=== PATIENT | male | born 1975 | race Caucasian/White ===

== ENCOUNTER 2020-09-09 12:34 | Emergency (ER) | payer BC ==
[2020-09-09 12:52] VITALS: BP 143/89
[2020-09-09] MEDS ORDERED: DUONEB 0.5-3 MG/3 ml Neb IH ONE (12:56)
[2020-09-09] MEDS ORDERED: solu-MEDROL 125 MG, Sterile H2O 10 ml 2 ML IV ONE ×2 (12:56)
[2020-09-09] MEDS ORDERED: solu-MEDROL ONE (13:14)
[2020-09-09] MEDS ORDERED: Sterile H2O 10 ml IJ ONE (13:15)
--- NOTE | 2020-09-09 13:20 | ERPHSYRPT ---
- History of Present Illness Time Seen by Provider: 09/09/20 12:44 Source: patient Exam Limitations: no limitations Patient Subjective Stated Complaint: fatigue, muscle aches, fever, cough, shortness of breath Triage Nursing Assessment: Pt brought to the ER by his , hypoxic, hypertensive, denies pain, tachycardic, states that he had a fever at home, skin n/w/d, doesn't appear to be in any distress Physician History: 45 years old male presented to the ER with chief complaint of flulike symptoms since yesterday after he came back from [place]. Patient reports having cough congestion, headache, body aches, shortness of breath/chest soreness with low- grade subjective feeling of fever and chills. No abdominal pain nausea vomiting or diarrhea reported. Did not have Covid vaccine. Reports he did take neb brady tment prior to arrival and feeling better Timing/Duration: yesterday, gradual onset, worse Cough Quality/Degree: moderate, dry cough Possible Cause: no prior episodes Modifying Factors: Improves With: albuterol nebulizer. Worsens With: coughing, exertion Associated Symptoms: fever, chills, chest pain/soreness, cough, dizziness, earache, headache, muscle aches, nasal congestion Allergies/Adverse Reactions: No Known Drug Allergies Allergy (Verified 09/09/20 12:52) Home Medications: Trazodone HCl 1 tablet PO DAILY 01/22/15 [History] Zolpidem Tartrate [Ambien] 1 tablet PO HS 01/22/15 [History] Travel Risk - International Travel Have you traveled outside of the country in past 3 weeks: No - Coronavirus Screening Are you exhibiting any of the following symptoms?: No Symptoms: Fever, Cough: New Onset, Shortness of Breath, Headaches/Body Aches/Fatigue Close contact with a COVID-19 positive Pt in past 14-21 Days: No - Vaccine Status Have you recieved a Covid-19 vaccination: No - Review of Systems Constitutional: Fever, Chills, Fatigue, Weakness Eyes: No Symptoms Ears, Nose, & Throat: Nose Congestion, Throat Pain Respiratory: Cough, Dyspnea, Dyspnea on Exertion (CARDENAS), Wheezing Abdominal/Gastrointestinal: No Symptoms Genitourinary Symptoms: No Symptoms Musculoskeletal: Myalgias Skin: No Symptoms Neurological: No Symptoms Psychological: No Symptoms Endocrine: No Symptoms Hematologic/Lymphatic: No Symptoms Immunological/Allergic: No Symptoms - Past Medical History Pertinent Past Medical History: Yes Neurological History: No Pertinent History ENT History: No Pertinent History Cardiac History: Congenital Heart Disease Respiratory History: No Pertinent History Endocrine Medical History: No Pertinent History Musculoskeletal History: Arthritis, Fractures GI Medical History: GERD History: No Pertinent History Psycho-Social History: No Pertinent History Male Reproductive Disorders: No Pertinent History Other Medical History: history of rib, finger, and toe fractures. surgical hx: hernia repair (2015), B carpal tunnel releases (2015), tonsilectomy (childhood) - Past Surgical History Past Surgical History: Yes Musculoskeletal: Orthopedic Surgery Male Surgical History: Vasectomy Other Surgical History: tony carpal tunnnel surgery, history of rib, finger, and toe fractures. surgical hx: hernia repair (2014), B carpal tunnel releases (2015), tonsilectomy (childhood) - Social History Smoking Status: Former smoker Exposure to second hand smoke: No Drug Use: none Patient Lives Alone: No - Nursing Vital Signs Nursing Vital Signs: Initial Vital Signs Temperature 99.1 F 09/09/20 12:39 Pulse Rate 104 H 09/09/20 12:39 Respiratory Rate 19 09/09/20 12:39 Blood Pressure 143/89 09/09/20 12:39 O2 Sat by Pulse Oximetry 91 L 09/09/20 12:39 Pain Scale Pain Intensity 0 - Physical Exam General Appearance: no apparent distress, alert Eye Exam: PERRL/EOMI, eyes nml inspection Ears, Nose, Throat Exam: TMs normal, pharyngeal erythema Neck Exam: normal inspection, non-tender, full range of motion Respiratory Exam: normal breath sounds, lungs clear Cardiovascular Exam: regular rate/rhythm, normal heart sounds Gastrointestinal/Abdomen Exam: soft, normal bowel sounds, No tenderness Back Exam: normal inspection, normal range of motion Extremity Exam: normal inspection, normal range of motion Neurologic Exam: alert, oriented x 3, cooperative Skin Exam: normal color SpO2 Interpretation: normal SpO2: 91 O2 Delivery: Room Air - Course EKG Interpreted by Me: RATE (92), Sinus Rhythm, NORMAL AXIS, NORMAL INTERVALS, Non-specific ST Changes Ordered Tests: Medication Summary Discontinued Medications Generic Name Dose Route Start Last Admin Trade Name Freq PRN Reason Stop Dose Admin Albuterol/Ipratropium 3 ml 09/09/20 12:56 09/09/20 15:19 Duoneb 0.5-3 Mg/3 Ml Neb IH 09/09/20 12:57 Not Given STAT ONE Methylprednisolone Sodium 0 mg 09/09/20 12:56 09/09/20 13:20 Succinate 125 mg/ Sterile IV 09/09/20 12:57 125 mg Water 2 ml STAT ONE Administration Azithromycin 500 mg in 250 mls @ 250 mls/hr 09/09/20 17:34 Zithromax 500 Mg/ 250 Ml Nacl Premix IV 09/09/20 18:33 STAT STA Ceftriaxone Sodium/Dextrose 2 g in 50 mls @ 100 mls/hr 09/09/20 17:34 Rocephin 2 Gm-D5w 50ml Bag IV 09/09/20 18:03 STAT STA Methylprednisolone Sodium Succinate Confirm 09/09/20 13:14 Solu-Medrol Administered 09/09/20 13:15 Dose 125 mg .ROUTE .STK-MED ONE Sterile Water Confirm 09/09/20 13:15 Sterile H2o 10 Ml Administered 09/09/20 13:16 Dose 10 ml IJ .STK-MED ONE Lab/Rad Data: Laboratory Result Diagrams 09/09/20 13:52 09/09/20 13:52 Laboratory Results 09/09/20 09/09/20 09/09/20 Range/Units 18:47 16:03 14:48 WBC (4.0-10.5) K/mm3 RBC (4.1-5.6) M/mm3 Hgb (12.5-18.0) gm/dl Hct (42-50) % MCV (78-100) fl MCH (26-32) pg MCHC (32-36) g/dl RDW (11.5-14.0) % Plt Count (150-450) K/mm3 MPV (7.5-11.0) fl Gran % (36.0-66.0) % Eos # (Auto) (0-0.5) Absolute Lymphs (auto) (1.0-4.6) Absolute Monos (auto) (0.0-1.3) Lymphocytes % (24.0-44.0) % Monocytes % (0.0-12.0) % Eosinophils % (0.00-5.0) % Basophils % (0.0-0.4) % Absolute Granulocytes (1.4-6.9) Basophils # (0-0.4) D-Dimer (215-500) ng/mL pO2/FiO2 Ratio % VBG pH (7.32-7.42) VBG pCO2 at Pat Temp (42-55) mm/Hg VBG pO2 at Pat Temp (25-40) mm/Hg VBG HCO3 (22-28) meq/L VBG O2 Sat (Fanny) (95-100) VBG Base Excess (-2.0-2.0) VBG Hemoglobin VBG Carboxyhemoglobin (0.0-6.9) % T HGB POC Potassium (3.5-5.1) Sodium (137-145) mmol/L Potassium (3.5-5.1) mmol/L Chloride (98-107) mmol/L Carbon Dioxide (22-30) mmol/L Anion Gap (5-15) MEQ/L BUN (9-20) mg/dL Creatinine (0.66-1.25) mg/dL Estimated GFR ML/MIN Glucose (74-106) mg/dL Lactic Acid (0.4-2.0) Calcium (8.4-10.2) mg/dL Magnesium (1.6-2.3) mg/dL Total Bilirubin (0.2-1.3) mg/dL AST (17-59) U/L ALT (0-50) U/L Alkaline Phosphatase (38-126) U/L Troponin I < 0.012 (0.000-0.034) ng/mL NT-Pro-B Natriuret Pep (0-450) pg/mL Serum Total Protein (6.3-8.2) g/dL Albumin (3.5-5.0) g/dL Urine Color YELLOW (YELLOW) Urine Appearance CLEAR (CLEAR) Urine pH 5.0 (5-6) Ur Specific Briggs 1.025 (1.005-1.025) Urine Protein 100 (Negative) Urine Ketones NEGATIVE (NEGATIVE) Urine Blood NEGATIVE (0-5) Gianluca/ul Urine Nitrite NEGATIVE (NEGATIVE) Urine Bilirubin NEGATIVE (NEGATIVE) Urine Urobilinogen 4 (0-1) mg/dL Ur Leukocyte Esterase NEGATIVE (NEGATIVE) Urine WBC (Auto) NONE (0-5) /HPF Urine RBC (Auto) NONE (0-2) /HPF U Epithel Cells (Auto) NONE (FEW) /HPF Urine Bacteria (Auto) NONE (NEGATIVE) /HPF Urine Mucus (Auto) SLIGHT (NEGATIVE) /HPF Urine Culture Reflexed NO (NO) Urine Glucose NEGATIVE (NEGATIVE) mg/dL SARS-CoV-2 (PCR) POSITIVE A (NEGATIVE) Slides for Path Review 09/09/20 09/09/20 09/09/20 Range/Units 14:32 14:20 13:52 WBC (4.0-10.5) K/mm3 RBC (4.1-5.6) M/mm3 Hgb (12.5-18.0) gm/dl Hct (42-50) % MCV (78-100) fl MCH (26-32) pg MCHC (32-36) g/dl RDW (11.5-14.0) % Plt Count (150-450) K/mm3 MPV (7.5-11.0) fl Gran % (36.0-66.0) % Eos # (Auto) (0-0.5) Absolute Lymphs (auto) (1.0-4.6) Absolute Monos (auto) (0.0-1.3) Lymphocytes % (24.0-44.0) % Monocytes % (0.0-12.0) % Eosinophils % (0.00-5.0) % Basophils % (0.0-0.4) % Absolute Granulocytes (1.4-6.9) Basophils # (0-0.4) D-Dimer 941 H* (215-500) ng/mL pO2/FiO2 Ratio % VBG pH (7.32-7.42) VBG pCO2 at Pat Temp (42-55) mm/Hg VBG pO2 at Pat Temp (25-40) mm/Hg VBG HCO3 (22-28) meq/L VBG O2 Sat (Fanny) (95-100) VBG Base Excess (-2.0-2.0) VBG Hemoglobin VBG Carboxyhemoglobin (0.0-6.9) % T HGB POC Potassium (3.5-5.1) Sodium (137-145) mmol/L Potassium (3.5-5.1) mmol/L Chloride (98-107) mmol/L Carbon Dioxide (22-30) mmol/L Anion Gap (5-15) MEQ/L BUN (9-20) mg/dL Creatinine (0.66-1.25) mg/dL Estimated GFR ML/MIN Glucose (74-106) mg/dL Lactic Acid (0.4-2.0) Calcium (8.4-10.2) mg/dL Magnesium (1.6-2.3) mg/dL Total Bilirubin (0.2-1.3) mg/dL AST (17-59) U/L ALT (0-50) U/L Alkaline Phosphatase (38-126) U/L Troponin I < 0.012 (0.000-0.034) ng/mL NT-Pro-B Natriuret Pep 20.9 (0-450) pg/mL Serum Total Protein (6.3-8.2) g/dL Albumin (3.5-5.0) g/dL Urine Color (YELLOW) Urine Appearance (CLEAR) Urine pH (5-6) Ur Specific Briggs (1.005-1.025) Urine Protein (Negative) Urine Ketones (NEGATIVE) Urine Blood (0-5) Gianluca/ul Urine Nitrite (NEGATIVE) Urine Bilirubin (NEGATIVE) Urine Urobilinogen (0-1) mg/dL Ur Leukocyte Esterase (NEGATIVE) Urine WBC (Auto) (0-5) /HPF Urine RBC (Auto) (0-2) /HPF U Epithel Cells (Auto) (FEW) /HPF Urine Bacteria (Auto) (NEGATIVE) /HPF Urine Mucus (Auto) (NEGATIVE) /HPF Urine Culture Reflexed (NO) Urine Glucose (NEGATIVE) mg/dL SARS-CoV-2 (PCR) (NEGATIVE) Slides for Path Review 09/09/20 09/09/20 09/09/20 Range/Units 13:52 13:52 13:41 WBC 2.9 L (4.0-10.5) K/mm3 RBC 4.67 (4.1-5.6) M/mm3 Hgb 14.2 (12.5-18.0) gm/dl Hct 42.9 (42-50) % MCV 91.9 (78-100) fl MCH 30.4 (26-32) pg MCHC 33.1 (32-36) g/dl RDW 16.7 H (11.5-14.0) % Plt Count 89 L (150-450) K/mm3 MPV 10.1 (7.5-11.0) fl Gran % 51.8 (36.0-66.0) % Eos # (Auto) 0.01 (0-0.5) Absolute Lymphs (auto) 0.86 L (1.0-4.6) Absolute Monos (auto) 0.50 (0.0-1.3) Lymphocytes % 30.1 (24.0-44.0) % Monocytes % 17.5 H (0.0-12.0) % Eosinophils % 0.3 (0.00-5.0) % Basophils % 0.3 (0.0-0.4) % Absolute Granulocytes 1.48 (1.4-6.9) Basophils # 0.01 (0-0.4) D-Dimer (215-500) ng/mL pO2/FiO2 Ratio % VBG pH (7.32-7.42) VBG pCO2 at Pat Temp (42-55) mm/Hg VBG pO2 at Pat Temp (25-40) mm/Hg VBG HCO3 (22-28) meq/L VBG O2 Sat (Fanny) (95-100) VBG Base Excess (-2.0-2.0) VBG Hemoglobin VBG Carboxyhemoglobin (0.0-6.9) % T HGB POC Potassium (3.5-5.1) Sodium 134 L (137-145) mmol/L Potassium 3.6 (3.5-5.1) mmol/L Chloride 99 (98-107) mmol/L Carbon Dioxide 23 (22-30) mmol/L Anion Gap 14.6 (5-15) MEQ/L BUN 14 (9-20) mg/dL Creatinine 0.97 (0.66-1.25) mg/dL Estimated GFR > 60.0 ML/MIN Glucose 209 H (74-106) mg/dL Lactic Acid 1.9 (0.4-2.0) Calcium 7.8 L (8.4-10.2) mg/dL Magnesium 1.6 (1.6-2.3) mg/dL Total Bilirubin 0.20 (0.2-1.3) mg/dL AST 72 H (17-59) U/L ALT 78 H (0-50) U/L Alkaline Phosphatase 65 (38-126) U/L Troponin I (0.000-0.034) ng/mL NT-Pro-B Natriuret Pep (0-450) pg/mL Serum Total Protein 6.4 (6.3-8.2) g/dL Albumin 3.5 (3.5-5.0) g/dL Urine Color (YELLOW) Urine Appearance (CLEAR) Urine pH (5-6) Ur Specific Briggs (1.005-1.025) Urine Protein (Negative) Urine Ketones (NEGATIVE) Urine Blood (0-5) Gianluca/ul Urine Nitrite (NEGATIVE) Urine Bilirubin (NEGATIVE) Urine Urobilinogen (0-1) mg/dL Ur Leukocyte Esterase (NEGATIVE) Urine WBC (Auto) (0-5) /HPF Urine RBC (Auto) (0-2) /HPF U Epithel Cells (Auto) (FEW) /HPF Urine Bacteria (Auto) (NEGATIVE) /HPF Urine Mucus (Auto) (NEGATIVE) /HPF Urine Culture Reflexed (NO) Urine Glucose (NEGATIVE) mg/dL SARS-CoV-2 (PCR) (NEGATIVE) Slides for Path Review YES 09/09/20 Range/Units 13:36 WBC (4.0-10.5) K/mm3 RBC (4.1-5.6) M/mm3 Hgb (12.5-18.0) gm/dl Hct (42-50) % MCV (78-100) fl MCH (26-32) pg MCHC (32-36) g/dl RDW (11.5-14.0) % Plt Count (150-450) K/mm3 MPV (7.5-11.0) fl Gran % (36.0-66.0) % Eos # (Auto) (0-0.5) Absolute Lymphs (auto) (1.0-4.6) Absolute Monos (auto) (0.0-1.3) Lymphocytes % (24.0-44.0) % Monocytes % (0.0-12.0) % Eosinophils % (0.00-5.0) % Basophils % (0.0-0.4) % Absolute Granulocytes (1.4-6.9) Basophils # (0-0.4) D-Dimer (215-500) ng/mL pO2/FiO2 Ratio 21.0 % VBG pH 7.42 (7.32-7.42) VBG pCO2 at Pat Temp 39 L (42-55) mm/Hg VBG pO2 at Pat Temp 98 H (25-40) mm/Hg VBG HCO3 25.3 (22-28) meq/L VBG O2 Sat (Fanny) 98.1 (95-100) VBG Base Excess 0.8 (-2.0-2.0) VBG Hemoglobin 14.3 VBG Carboxyhemoglobin 3.4 (0.0-6.9) % T HGB POC Potassium 3.8 (3.5-5.1) Sodium (137-145) mmol/L Potassium (3.5-5.1) mmol/L Chloride (98-107) mmol/L Carbon Dioxide (22-30) mmol/L Anion Gap (5-15) MEQ/L BUN (9-20) mg/dL Creatinine (0.66-1.25) mg/dL Estimated GFR ML/MIN Glucose (74-106) mg/dL Lactic Acid (0.4-2.0) Calcium (8.4-10.2) mg/dL Magnesium (1.6-2.3) mg/dL Total Bilirubin (0.2-1.3) mg/dL AST (17-59) U/L ALT (0-50) U/L Alkaline Phosphatase (38-126) U/L Troponin I (0.000-0.034) ng/mL NT-Pro-B Natriuret Pep (0-450) pg/mL Serum Total Protein (6.3-8.2) g/dL Albumin (3.5-5.0) g/dL Urine Color (YELLOW) Urine Appearance (CLEAR) Urine pH (5-6) Ur Specific Briggs (1.005-1.025) Urine Protein (Negative) Urine Ketones (NEGATIVE) Urine Blood (0-5) Gianluca/ul Urine Nitrite (NEGATIVE) Urine Bilirubin (NEGATIVE) Urine Urobilinogen (0-1) mg/dL Ur Leukocyte Esterase (NEGATIVE) Urine WBC (Auto) (0-5) /HPF Urine RBC (Auto) (0-2) /HPF U Epithel Cells (Auto) (FEW) /HPF Urine Bacteria (Auto) (NEGATIVE) /HPF Urine Mucus (Auto) (NEGATIVE) /HPF Urine Culture Reflexed (NO) Urine Glucose (NEGATIVE) mg/dL SARS-CoV-2 (PCR) (NEGATIVE) Slides for Path Review - Progress Progress: improved, re-examined Air Movement: fair Progress Note: 09/09/20 17:40 45 years old morbidly obese is evaluated for flulike symptoms with cough congestion. Is given breathing treatment, steroids, on reevaluation he is desatting to 89/90% on room air. X-rays showed congestion with right-sided pneumonia. He has a low white count/platelets and no Covid vaccine. Chemistry profile showed some hyperglycemia, lactate on upper limit of normal, mildly elevated transaminases and D-dimers in 900s. CTA is obtained which is essentially nondiagnostic study and does have bilateral infiltrative process. Started on antibiotics. Discussed with Dr. Lloyd, as I have a fear with his large body habitus and bilateral pneumonia and borderline oxygen saturation he will go worse if I send him home. Agreed with obtaining COVID-19 testing, remdesivir, steroids and admission. Plan discussed with patient who understand and agrees with it. 09/09/20 19:03 patient is admitted but he does not want to stay. Patient's pain to 90% while resting. I have discussed with him in length about risk of leaving without full work-up and treatment but he is adamant that he has to go. I have's talk to Kam Yeh his [id number] and she also agreed that patient should be admitted. Initially he was okay with admission but wants to leave. Patient cannot be cleared based on CTA that he does not have a pulmonary embolism and has bilateral infiltrative process. He wants to leave AGAINST MEDICAL ADVICE and understands the risk that he can have worsening of pneumonia, respiratory symptoms are could have pulmonary embolism that can be life- threatening but still wants to go home. He signed AGAINST MEDICAL ADVICE pap erwork. Patient was not confused altered at all. Blood Culture(s) Obtained: Yes Antibiotics given: Yes Discussed with Dr.: Other (Dr. Lloyd) Will see patient in: hospital (full admit) Counseled pt/family regarding: lab results, diagnosis, rad results - Departure Departure Disposition: In-patient Admission Clinical Impression: COVID-19 Bilateral pneumonia Qualifiers: Pneumonia type: due to unspecified organism Lung location: unspecified part of lung Qualified Code(s): J18.9 - Pneumonia, unspecified organism Condition: Stable Critical Care Time: No Referrals: [facility]ECT[facility] [Primary Care Provider] -
[2020-09-09 13:37] LABS: VBG BASE EXCESS 0.8 (-2.0-2.0); VBG CARBOXYHEMOGLOBIN 3.4 % T HGB (0.0-6.9); VBG HCO3- 25.3 meq/L (22-28); VBG HEMOGLOBIN 14.3; VBG O2 SATURATION 98.1 (95-100); VBG POTASSIUM 3.8 (3.5-5.1); VBG pH 7.42 (7.32-7.42)
[2020-09-09 13:54] LABS: Absolute Neutrophil Ct (ANC) 1.48 (1.4-6.9); BASOPHIL % 0.3 % (0.0-0.4); Basophil (Absolute #) 0.01 (0-0.4); Eosinophil % 0.3 % (0.00-5.0); Eosinophil (Absolute #) 0.01 (0-0.5); Hematocrit 42.9 % (42-50); Hemoglobin 14.2 gm/dl (12.5-18.0); Lymphocyte (Absolute #) 0.86 (1.0-4.6); Lymphocytes % 30.1 % (24.0-44.0); Mean Cell Volume 91.9 fl (78-100); Mean Corpuscular Hemoglobin 30.4 pg (26-32); Mean Corpuscular Hgb Concent. 33.1 g/dl (32-36); Mean Platelet Volume 10.1 fl (7.5-11.0); Monocytes % 17.5 % (0.0-12.0); Neutrophil % 51.8 % (36.0-66.0); Platelet Count 89 K/mm3 (150-450); Red Blood Count 4.67 M/mm3 (4.1-5.6); Red Cell Distribution Width 16.7 % (11.5-14.0); White Blood Count 2.9 K/mm3 (4.0-10.5)
[2020-09-09 14:15] LABS: ALBUMIN 3.5 g/dL (3.5-5.0); ALKALINE PHOSPHATASE 65 U/L (38-126); ANION GAP 14.6 MEQ/L (5-15); BLOOD UREA NITROGEN 14 mg/dL (9-20); CHLORIDE 99 mmol/L (98-107); Calcium 7.8 mg/dL (8.4-10.2); Carbon Dioxide 23 mmol/L (22-30); Creatinine 1 0.97 mg/dL (0.66-1.25); EST GLOMERULAR FILTRATION RATE > 60.0 ML/MIN; Glucose 209 mg/dL (74-106); MAGNESIUM 1.6 mg/dL (1.6-2.3); Potassium 3.6 mmol/L (3.5-5.1); SGOT/AST 72 U/L (17-59); SGPT/ALT 78 U/L (0-50); SODIUM 134 mmol/L (137-145); Total Protein 6.4 g/dL (6.3-8.2)
[2020-09-09 14:47] LABS: Appearance CLEAR (CLEAR); Bilirubin NEGATIVE (NEGATIVE); Blood NEGATIVE Ery/ul (0-5); Glucose NEGATIVE (NEGATIVE); Ketones NEGATIVE (NEGATIVE); Leukocyte Esterase NEGATIVE (NEGATIVE); Mucus SLIGHT /HPF (NEGATIVE); Nitrite NEGATIVE (NEGATIVE); Protein,Urine Dip 100 (Negative); Specific Gravity 1.025 (1.005-1.025); Urobilinogen 4 mg/dL (0-1)
[2020-09-09 14:52] LABS: Slide Review 1 YES
[2020-09-09] MEDS ORDERED: Zithromax 500 MG/ 250 ML NaCl Premix 500 MG/250 ML IVPB IV STA (17:34)
[2020-09-09] MEDS ORDERED: ROCEPHIN 2 Gm-D5w 50ML BAG** 2 G/50 ML IVPB IV STA (17:34)
[2020-09-09 18:06] VITALS: PULSE 75
[2020-09-09 20:05] VITALS: O2SAT 91
--- NOTE | 2020-09-09 21:40 | XRAY ---
Indication: Pneumonia. Suspect Covid 19. Comparison: May 12, 2019. Portable apical lordotic chest markedly less inflated with suboptimal technique limiting evaluation of both costophrenic angles. No focal infiltrate, consolidation, or large effusion. Heart not enlarged. Bony thorax intact again with mild degenerative changes. Impression: Nonacute limited chest.
--- NOTE | 2020-09-10 08:49 | XRAY ---
Indication: Short of breath. Elevated d-dimer. Multiple contiguous axial images obtained through the chest using 100 cc Isovue 370 contrast and PE protocol. Comparison: None There is suboptimal opacification of the pulmonary arteries limiting evaluation of the more distal lobar and segmental branches. No central pulmonary embolus. Heart is not enlarged. Aorta is normal in course and caliber. Small mediastinal and right hilar calcified nodes. No pathologic mediastinal/hilar lymphadenopathy. Lungs inflated with right apical patchy airspace disease without effusion. Minimal bibasilar fibrosis/scarring. Bony thorax intact with moderate degenerative changes throughout the spine. Limited upper abdomen demonstrates fatty liver, 19 cm splenomegaly, and hepatic/splenic calcified granulomas. Impression: 1. No central pulmonary embolus. 2. Right upper lobe airspace disease. 3. Incidental fatty liver, splenomegaly, and old granulomatous disease. Comment: Preliminary interpretation made by C. No critical discrepancy.
== END 2020-09-09 18:55 | disposition left against medical advice (07) ==
LOC: ED 12:34
DX: U07.1 COVID-19 (principal); J18.9 Pneumonia, unspecified organism
CPT/HCPCS: 36000; 36415; 71045; 71260; 80053; 81001; 82805; 83605; 83735; 83880; 84484; 85025; 85379; 87040; 93005; 93041; 96374; 99284; U0003; J2930

== ENCOUNTER 2020-09-15 07:04 | Inpatient (IN) | payer BC ==
[2020-09-15] MEDS ORDERED: solu-MEDROL 125 MG, Sterile H2O 10 ml 2 ML IV ONE ×2 (07:11)
--- NOTE | 2020-09-15 07:11 | ERPHSYRPT ---
- History of Present Illness Time Seen by Provider: 09/15/20 07:11 Source: patient Exam Limitations: no limitations Physician History: This is a morbidly obese 45-year-old white male with a history of gastroesophageal reflux disease who was seen in this emergency room 6 days ago (09/09/2020) and was diagnosed with positive COVID-19 infection. He left AMA after the work-up. A CAT scan of the chest was performed that showed bilateral infiltrative process but no pulmonary emboli. Patient left that emergency room visit and his symptoms were worsening and therefore he presents to the emergency department today with fatigue, muscle aches, fever, cough and shortness of breath. His room air oxygenation is approximately 85%. We immediately placed him on 6 L nasal cannula oxygen supplementation which increased his oxygen saturation to 95%. Patient denies chest pain. He denies abdominal pain. He has no nausea vomiting or diarrhea. Timing/Duration: day(s), worse (Several days) Activities at Onset: activity Severity of Dyspnea-Max: moderate Severity of Dyspnea-Current: moderate Possible Cause: illness exposure Modifying Factors: Improves With: activity, coughing Associated Symptoms: anxiety, cough, No chest pain/discomfort Allergies/Adverse Reactions: No Known Drug Allergies Allergy (Verified 09/09/20 12:52) Home Medications: Trazodone HCl 1 tablet PO DAILY 01/22/15 [History] Zolpidem Tartrate [Ambien] 1 tablet PO HS 01/22/15 [History] Travel Risk - International Travel Have you traveled outside of the country in past 3 weeks: No - Coronavirus Screening Are you exhibiting any of the following symptoms?: No Symptoms: Cough: New Onset, Shortness of Breath, Headaches/Body Aches/Fatigue Close contact with a COVID-19 positive Pt in past 14-21 Days: Yes - Vaccine Status Have you recieved a Covid-19 vaccination: No - Review of Systems Constitutional: Fatigue, Malaise, Weakness Eyes: No Symptoms Ears, Nose, & Throat: No Symptoms Respiratory: Cough, Dyspnea, No Stridor, No Wheezing Cardiac: No Symptoms Abdominal/Gastrointestinal: No Symptoms Genitourinary Symptoms: No Symptoms Musculoskeletal: No Symptoms Skin: No Symptoms Neurological: No Symptoms Psychological: No Symptoms Endocrine: No Symptoms Hematologic/Lymphatic: No Symptoms Immunological/Allergic: No Symptoms All Other Systems: Reviewed and Negative - Past Medical History Pertinent Past Medical History: Yes Neurological History: No Pertinent History ENT History: No Pertinent History Cardiac History: Congenital Heart Disease Respiratory History: No Pertinent History Endocrine Medical History: No Pertinent History Musculoskeletal History: Arthritis, Fractures GI Medical History: GERD History: No Pertinent History Psycho-Social History: No Pertinent History Male Reproductive Disorders: No Pertinent History Other Medical History: history of rib, finger, and toe fractures. surgical hx: hernia repair (2015), B carpal tunnel releases (2015), tonsilectomy (childhood) - Past Surgical History Past Surgical History: Yes Musculoskeletal: Orthopedic Surgery Male Surgical History: Vasectomy Other Surgical History: tony carpal tunnnel surgery, history of rib, finger, and toe fractures. surgical hx: hernia repair (2014), B carpal tunnel releases (2015), tonsilectomy (childhood) - Social History Smoking Status: Former smoker Exposure to second hand smoke: No Drug Use: none Patient Lives Alone: No - Nursing Vital Signs Nursing Vital Signs: Initial Vital Signs Temperature 99.9 F 09/15/20 07:47 Pulse Rate 102 H 09/15/20 07:47 Respiratory Rate 24 09/15/20 07:47 Blood Pressure 124/69 09/15/20 07:47 O2 Sat by Pulse Oximetry 82 L 09/15/20 07:47 Pain Scale Pain Intensity 4 - Physical Exam General Appearance: mild distress, alert, anxiety, obese Eye Exam: PERRL/EOMI, eyes nml inspection Ears, Nose, Throat Exam: hearing grossly normal, normal ENT inspection, normal pharynx Neck Exam: normal inspection, non-tender, supple, full range of motion Respiratory Exam: normal breath sounds, lungs clear, respiratory distress (Mild), airway intact, No chest tenderness Cardiovascular/Chest Exam: normal heart sounds, regular rate/rhythm, normal peripheral pulses, No murmur Abdominal/Gastrointestinal Exam: soft, normal bowel sounds, No tenderness Rectal Exam: not done Extremity Exam: non-tender, normal range of motion, normal inspection Neurologic Exam: alert, oriented x 3, cooperative, sharepoint solutions developer II-XII nml as tested, nml cerebellar function, nml station & gait, sensation nml, other (Anxious) Skin Exam: normal color, warm, dry Lymphatic Exam: No adenopathy SpO2 Interpretation: hypoxic - Course Nursing assessment & vital signs reviewed: Yes Ordered Tests: Active Orders 24 hr Category Date Time Status Senior Engineering Manager STAT Care 09/15/20 07:12 Active EKG-ER Only STAT Care 09/15/20 07:11 Active IV Insertion STAT Care 09/15/20 07:11 Active Isolation, Initiate & Maintain STAT Care 09/15/20 07:13 Active Pulse Oximetry (ED) STAT Care 09/15/20 07:11 Active CHEST 1 VIEW (PORTABLE) Stat Exams 09/15/20 07:12 Completed BLOOD CULTURE Stat Lab 09/15/20 07:30 Received CBC W DIFF Stat Lab 09/15/20 07:30 Completed CMP Stat Lab 09/15/20 07:30 Received D-DIMER QUANTITATIVE Stat Lab 09/15/20 07:30 Received Ferritin Stat Lab 09/15/20 07:30 Received LDH-LACTATE DEHYDROGENASE Stat Lab 09/15/20 07:30 Received Lactic Acid Stat Lab 09/15/20 07:11 Ordered NT PRO BNP Stat Lab 09/15/20 07:30 Received TROPONIN Q3H Lab 09/15/20 07:30 Received TROPONIN Q3H Lab 09/15/20 10:15 Ordered TROPONIN Q3H Lab 09/15/20 13:15 Ordered TROPONIN Q3H Lab 09/15/20 16:15 Ordered TROPONIN Q3H Lab 09/15/20 19:15 Ordered Transfer Order Routine Transfer 09/15/20 Ordered Medication Summary Generic Name Dose Route Start Last Admin Trade Name Freq PRN Reason Stop Dose Admin Sodium Chloride 1,000 mls @ 50 mls/hr 09/15/20 07:15 09/15/20 07:25 Sodium Chloride 0.9% 1000 Ml IV 10/15/20 07:14 50 mls/hr .Q20H CRISTIAN Administration Discontinued Medications Generic Name Dose Route Start Last Admin Trade Name Freq PRN Reason Stop Dose Admin Methylprednisolone Sodium 0 mg 09/15/20 07:11 09/15/20 07:25 Succinate 125 mg/ Sterile IV 09/15/20 07:12 125 mg Water 2 ml STAT ONE Administration Enoxaparin Sodium 180 mg 09/15/20 07:56 Enoxaparin Sodium SQ 09/15/20 07:57 STAT ONE Lorazepam Confirm 09/15/20 07:29 Ativan 2 Mg/1 Ml Vial Administered 09/15/20 07:30 Dose 2 mg .ROUTE .STK-MED ONE Lorazepam 1 mg 09/15/20 07:34 09/15/20 07:43 Ativan 2 Mg/1 Ml Vial IV 09/15/20 07:35 1 mg STAT ONE Administration Methylprednisolone Sodium Succinate Confirm 09/15/20 07:23 Solu-Medrol Administered 09/15/20 07:24 Dose 125 mg .ROUTE .STK-MED ONE Sterile Water Confirm 09/15/20 07:23 Sterile H2o 10 Ml Administered 09/15/20 07:24 Dose 10 ml IJ .STK-MED ONE Lab/Rad Data: Laboratory Result Diagrams 09/15/20 07:30 Laboratory Results 09/15/20 Range/Units 07:30 WBC 3.6 L (4.0-10.5) K/mm3 RBC 5.03 (4.1-5.6) M/mm3 Hgb 15.1 (12.5-18.0) gm/dl Hct 44.3 (42-50) % MCV 88.1 (78-100) fl MCH 30.0 (26-32) pg MCHC 34.1 (32-36) g/dl RDW 16.5 H (11.5-14.0) % Plt Count 85 L (150-450) K/mm3 MPV 9.8 (7.5-11.0) fl Gran % 79.5 H (36.0-66.0) % Eos # (Auto) 0 (0-0.5) Absolute Lymphs (auto) 0.52 L (1.0-4.6) Absolute Monos (auto) 0.21 (0.0-1.3) Lymphocytes % 14.6 L (24.0-44.0) % Monocytes % 5.9 (0.0-12.0) % Eosinophils % 0.0 (0.00-5.0) % Basophils % 0.0 (0.0-0.4) % Absolute Granulocytes 2.84 (1.4-6.9) Basophils # 0 (0-0.4) - Progress Progress: improved Air Movement: good Progress Note: 09/15/20 07:58 Chest x-ray shows bilateral COVID-19 infiltrative process. Medical decision making: I spoke with Dr. Bethea, our COVID-19 hospitalist, regarding admission of this patient to the hospital. We both agree that the CTA of the chest is not required since he just had 1 performed on 09/09/2020. We will admit him, give him albuterol inhaler, anticoagulate him with Lovenox, provide him with steroids twice a day and remdesivir. We will be placed in the Covid unit. Patient agrees to this plan and will not leave AMA. Blood Culture(s) Obtained: Yes Antibiotics given: No Discussed with : Other ([place]) Counseled pt/family regarding: lab results, diagnosis, rad results - Departure Departure Disposition: In-patient Admission Clinical Impression: Hypoxia, Pneumonia due to COVID-19 virus, Bilateral pneumonia Condition: Fair Critical Care Time: Yes Critical Care Time(excluding separately billable procedures): Critical 30-74 mins Referrals: [facility]ECT[facility] [Primary Care Provider] -
[2020-09-15] MEDS ORDERED: Sterile H2O 10 ml IJ ONE (07:23)
[2020-09-15] MEDS ORDERED: solu-MEDROL ONE (07:23)
[2020-09-15] MEDS ORDERED: Sodium Chloride 0.9% 1000 ML 1,000 ML ONE ×3 (07:23→19:55)
[2020-09-15] MEDS: Sodium Chloride 0.9% 1000 ML 1,000 ML IV SCH (07:25)
[2020-09-15] MEDS ORDERED: Ativan 2 MG/1 ML VIAL ONE (07:29)
[2020-09-15] MEDS ORDERED: Ativan 2 MG/1 ML VIAL IV ONE ×2 (07:34→17:30)
--- NOTE | 2020-09-15 07:42 | XRAY ---
Indication: Short of breath. Positive COVID 19. Comparison: September 09, 2020. Portable chest demonstrates new diffuse bilateral interstitial alveolar opacities without consolidation/large effusion. Heart not enlarged for AP portable technique. Bony thorax intact again with mild degenerative changes.
[2020-09-15 07:55] LABS: Absolute Neutrophil Ct (ANC) 2.84 (1.4-6.9); Basophil (Absolute #) 0 (0-0.4); Eosinophil (Absolute #) 0 (0-0.5); Hematocrit 44.3 % (42-50); Hemoglobin 15.1 gm/dl (12.5-18.0); Lymphocyte (Absolute #) 0.52 (1.0-4.6); Lymphocytes % 14.6 % (24.0-44.0); Mean Cell Volume 88.1 fl (78-100); Mean Corpuscular Hgb Concent. 34.1 g/dl (32-36); Mean Platelet Volume 9.8 fl (7.5-11.0); Monocyte (Absolute #) 0.21 (0.0-1.3); Monocytes % 5.9 % (0.0-12.0); Neutrophil % 79.5 % (36.0-66.0); Platelet Count 85 K/mm3 (150-450); Red Blood Count 5.03 M/mm3 (4.1-5.6); Red Cell Distribution Width 16.5 % (11.5-14.0); White Blood Count 3.6 K/mm3 (4.0-10.5)
[2020-09-15] MEDS ORDERED: ENOXAPARIN SODIUM SQ ONE ×3 (07:56→08:15)
[2020-09-15 08:11] LABS: ALBUMIN 3.7 g/dL (3.5-5.0); ALKALINE PHOSPHATASE 67 U/L (38-126); ANION GAP 16.1 MEQ/L (5-15); BLOOD UREA NITROGEN 16 mg/dL (9-20); CHLORIDE 99 mmol/L (98-107); Calcium 8.4 mg/dL (8.4-10.2); Carbon Dioxide 21 mmol/L (22-30); Creatinine 1 0.91 mg/dL (0.66-1.25); EST GLOMERULAR FILTRATION RATE > 60.0 ML/MIN; Glucose 225 mg/dL (74-106); NT PRO BNP 23.7 pg/mL (0-450); SGOT/AST 55 U/L (17-59); SGPT/ALT 42 U/L (0-50); SODIUM 132 mmol/L (137-145); Total Protein 6.9 g/dL (6.3-8.2)
[2020-09-15] MEDS ORDERED: Zofran 4 MG/2 ML VIAL IV PRN (08:48)
[2020-09-15] MEDS ORDERED: Ativan 2 MG/1 ML VIAL IV PRN (08:48)
[2020-09-15] MEDS ORDERED: TYLENOL 325 MG PO PRN (08:48)
[2020-09-15] MEDS ORDERED: DECADRON 10MG INJ. IV SCH ×2 (08:48→22:00)
[2020-09-15] MEDS ORDERED: ENOXAPARIN SODIUM SQ SCH ×2 (10:00→22:00)
[2020-09-15] MEDS ORDERED: REMDESIVIR 200 MG in Sodium Chloride 0.9% 250 ML 250 ML IV ONE (10:00)
[2020-09-15] MEDS ORDERED: TYLENOL EXTRA STRENGTH 500 MG PO PRN (10:17)
[2020-09-15] MEDS ORDERED: ALBUTEROL SULFATE 90 MCG IH PRN (10:20)
[2020-09-15] MEDS: Pepcid 20 MG PO SCH ×2 (10:30→21:06)
[2020-09-15] MEDS: Decadron 4 MG INJ IV SCH ×2 (10:59→21:06)
[2020-09-15] MEDS: Ativan 1 MG PO PRN ×2 (11:19→16:17)
[2020-09-15 18:24] LABS: A-aADO2 408; ABG HEMOGLOBIN 15.5; ABG POTASSIUM 4.4 (3.5-5.1); ARTERIAL BLD GAS O2 SATURATION 87.7 % (95-100); ARTERIAL BLOOD GAS BASE EXCESS -0.2 (-2.0-2.0); ARTERIAL BLOOD GAS FIO2 70 %; ARTERIAL BLOOD GAS PCO2 29 mmHg (35-45); ARTERIAL BLOOD GAS PO2 55 mmHg (75-100); ARTERIAL BLOOD GAS VENT MODE OXYMIZER 15LPM; ARTERIAL BLOOD GAS pH 7.49 (7.35-7.45); CARBOXYHEMOGLOBIN 1.3 % THgb (0.0-6.9); HCO3- 22.1 (22-28); HGB O2 SAT 86.1 g/dF (94-100); Methhemoglobin 0.5 % (1.4-1.5)
[2020-09-15 18:25] LABS: ABG SITE LEFT RADIAL; ALLEN TEST OK? YES
[2020-09-15] MEDS: VENTOLIN COMMON CANISTER IH PRN ×2 (19:16→23:18)
[2020-09-15] MEDS ORDERED: VALIUM 10 MG/2 ML SYRINGE IV ONE (19:32)
[2020-09-15] MEDS: ENOXAPARIN SODIUM SQ SCH (21:06)
[2020-09-15] MEDS: DESYREL 50 MG PO SCH (21:07)
[2020-09-15] MEDS ORDERED: Ambien 10 MG PO PRN (22:00)
[2020-09-15] MEDS: VALIUM 10 MG/2 ML SYRINGE IV PRN (23:55)
[2020-09-16] MEDS: VALIUM 10 MG/2 ML SYRINGE IV PRN ×6 (03:20→22:01)
[2020-09-16] MEDS: VENTOLIN COMMON CANISTER IH PRN ×2 (03:28→19:31)
[2020-09-16 05:28] LABS: A-aADO2 597; ABG HEMOGLOBIN 14.5; ABG POTASSIUM 4.1 (3.5-5.1); ABG SITE RIGHT RADIAL; ALLEN TEST OK? YES; ARTERIAL BLD GAS O2 SATURATION 95.4 % (95-100); ARTERIAL BLOOD GAS BASE EXCESS 0.7 (-2.0-2.0); ARTERIAL BLOOD GAS FIO2 100 %; ARTERIAL BLOOD GAS PCO2 35 mmHg (35-45); ARTERIAL BLOOD GAS PO2 72 mmHg (75-100); ARTERIAL BLOOD GAS pH 7.45 (7.35-7.45); CARBOXYHEMOGLOBIN 0.8 % THgb (0.0-6.9); HCO3- 24.3 (22-28); HGB O2 SAT 93.9 g/dF (94-100); Methhemoglobin 0.8 % (1.4-1.5)
[2020-09-16] MEDS ORDERED: Sodium Chloride 0.9% 1000 ML 1,000 ML ONE ×2 (07:11→19:24)
[2020-09-16 07:12] LABS: Absolute Neutrophil Ct (ANC) 3.18 (1.4-6.9); Basophil (Absolute #) 0 (0-0.4); Eosinophil (Absolute #) 0 (0-0.5); Hematocrit 42.4 % (42-50); Lymphocyte (Absolute #) 0.51 (1.0-4.6); Lymphocytes % 13.1 % (24.0-44.0); Mean Cell Volume 90.2 fl (78-100); Mean Corpuscular Hemoglobin 29.8 pg (26-32); Mean Platelet Volume 9.3 fl (7.5-11.0); Monocyte (Absolute #) 0.21 (0.0-1.3); Monocytes % 5.4 % (0.0-12.0); Neutrophil % 81.5 % (36.0-66.0); Platelet Count 93 K/mm3 (150-450); Red Cell Distribution Width 16.6 % (11.5-14.0); White Blood Count 3.9 K/mm3 (4.0-10.5)
[2020-09-16] MEDS: Sodium Chloride 0.9% 1000 ML 1,000 ML IV SCH (07:12)
[2020-09-16 07:22] LABS: INR 1.12 (0.8-3.0); PROTIME 13.2 SECONDS (9.4-12.5)
[2020-09-16 07:37] LABS: ALBUMIN 3.3 g/dL (3.5-5.0); ALKALINE PHOSPHATASE 60 U/L (38-126); ANION GAP 13.3 MEQ/L (5-15); BLOOD UREA NITROGEN 15 mg/dL (9-20); CHLORIDE 97 mmol/L (98-107); Calcium 8.3 mg/dL (8.4-10.2); Carbon Dioxide 27 mmol/L (22-30); Cholesterol 110 mg/dL (50-200); Creatinine 1 0.86 mg/dL (0.66-1.25); EST GLOMERULAR FILTRATION RATE > 60.0 ML/MIN; Glucose 270 mg/dL (74-106); HDL CHOLESTEROL 25 mg/dL (40-60); LDL, DIRECT 65 mg/dL (30-100); Potassium 4.2 mmol/L (3.5-5.1); Risk Ratio 4.5; SGOT/AST 52 U/L (17-59); SGPT/ALT 39 U/L (0-50); SODIUM 133 mmol/L (137-145); TRIGLYCERIDE 116 mg/dL (30-150); Total Protein 6.3 g/dL (6.3-8.2)
[2020-09-16] MEDS: ENOXAPARIN SODIUM SQ SCH ×2 (09:37→21:07)
[2020-09-16] MEDS: Decadron 4 MG INJ IV SCH ×2 (09:38→21:07)
[2020-09-16] MEDS: Pepcid 20 MG PO SCH ×2 (09:38→21:07)
[2020-09-16] MEDS ORDERED: TRAZODONE HCL PO SCH (10:00)
[2020-09-16] MEDS ORDERED: REMDESIVIR 100 MG in Sodium Chloride 0.9% 100 ML BAG 100 ML IV SCH (10:00)
[2020-09-16 10:19] LABS: Slide Review 1 YES
[2020-09-16] MEDS: NORCO 5/325 MG PO PRN (20:47)
[2020-09-16] MEDS: DESYREL 50 MG PO SCH (21:08)
[2020-09-17] MEDS: VALIUM 10 MG/2 ML SYRINGE IV PRN ×2 (01:44→06:05)
[2020-09-17] MEDS: VENTOLIN COMMON CANISTER IH PRN (01:47)
[2020-09-17] MEDS ORDERED: Ambien 10 MG PO PRN (02:04)
[2020-09-17] MEDS: NORCO 5/325 MG PO PRN (02:48)
[2020-09-17 05:42] LABS: A-aADO2 588; ABG HEMOGLOBIN 15.1; ABG POTASSIUM 4.3 (3.5-5.1); ABG SITE RIGHT RADIAL; ALLEN TEST OK? YES; ARTERIAL BLD GAS O2 SATURATION 96.3 % (95-100); ARTERIAL BLD GAS TIDAL VOLUME 600 cc; ARTERIAL BLOOD GAS FIO2 100 %; ARTERIAL BLOOD GAS PCO2 38 mmHg (35-45); ARTERIAL BLOOD GAS PO2 78 mmHg (75-100); ARTERIAL BLOOD GAS VENT MODE AVAPS; ARTERIAL BLOOD GAS pH 7.43 (7.35-7.45); CARBOXYHEMOGLOBIN 0.6 % THgb (0.0-6.9); HCO3- 25.2 (22-28); HGB O2 SAT 94.8 g/dF (94-100); Methhemoglobin 0.9 % (1.4-1.5)
[2020-09-17] MEDS ORDERED: Lasix 40 MG/4 ML IV ONE (06:21)
[2020-09-17] MEDS ORDERED: VALIUM 10 MG/2 ML SYRINGE IV ONE (07:35)
--- NOTE | 2020-09-17 08:05 | HP ---
CHIEF COMPLAINT: Shortness of breath for seven days. HISTORY OF PRESENT ILLNESS: The patient states that he was diagnosed with COVID over seven days ago. He was in the emergency room and left against medical advice. At that time he was on 2 liters of oxygen. He really did not seem extremely ill, according to the emergency room. I had talked to him and called back when I found out he did not arrive on the unit. However, he got worse over the next three days and he was here on Thursday afternoon. The patient was placed on 6 liters of oxygen and sent back to his unit. He is 45 years old with gastroesophageal reflux. He tells me he has a history of chronic anxiety. He does have anxiety attacks at times this probably explains why he left the emergency room on 09/09/2020. In the emergency room, his room air was 85% and 6 liters to correct that up to 95%. He denies any chest pain, abdominal pain. No nausea, vomiting or diarrhea. He states he has problems with sleep and wanted to make sure he got his sleeping medication. He's had no travel out of the city really. He is normally not on any oxygen. MEDICATIONS: Trazodone 1 tablet p.o. q.d., Ambien probably 10 mg h.s. He did receive 2 mg IV of Ativan in the emergency room for anxiety. ALLERGIES: No drug allergies. PAST MEDICAL HISTORY: He is disabled due to osteoarthritis, his weight and he seems to be mentally slow. He stated he has some congenital heart disease could not tell me what type. PAST SURGICAL HISTORY: Hernia repair in the past. Carpal tunnel. Tonsillectomy. REVIEW OF SYSTEMS: CONSTITUTIONAL: Fatigue, malaise, weakness. HEENT: He has some dry cough. No problems hearing or and seeing. ABDOMEN: He has some heartburn pretty well controlled with his medications, he states. Not bothering him now. MUSCULOSKELETAL: No specific complaints. SOCIAL HISTORY: [place]. He is former smoker, not recently. No history of drug use. FAMILY HISTORY: He has one daughter who lives 100 miles away. PHYSICAL EXAMINATION: The patient is a massive large male who talks slow, answers questions appropriately. VITAL SIGNS: Temperature 99F, pulse 102, respirations 24, blood pressure 120/69. O2 saturations was 82% in the emergency room. GENERAL APPEARANCE: The patient just had anxiety attack and O2 decreased as he ripped off his BiPAP. He could not tolerate the BiPAP mask probably his general anxiety and his mild hypoxia. He is still somewhat anxious. However, the nurses have done a great job in talking him down and getting him in bed and getting him on some high flow oxygen. CHEST: Clear. CVS: Heart sounds are regular but very distant. Pulses are normal and regular. EXTREMITIES: The patient has massive limbs, large knees but no swelling, no heat, no tenderness. LAB DATA AND TESTS: His EKG is normal. Labs: White count 3.6, hemoglobin 15. Chest x-ray showed bilateral infiltrates typical for COVID. CT was not required because he had one six days ago which showed COVID. His D-dimer was slightly high at 900. He was given an Albuterol inhaler in the emergency room. Cardiac enzymes were normal. IMPRESSION: The patient has COVID pneumonia, chronic anxiety and massive obesity. His ferritin is high 1,800. Lactic acid was high at 2.5. D-dimer was mildly elevated 827 reflecting his COVID. His LDH was 400 probably related to fatty liver. His EKG is actually normal and he is in sinus rhythm. PLAN: The patient was put on Lovenox based on his dose 1 mg/kg, oxygen to keep his O2 above 90%, Remdesivir, Decadron and his home medications. I think we should keep him on anti-anxiety medicine due to his severe anxiety problems especially being in a strange place is always a sure guess.
[2020-09-17 08:55] VITALS: BP 125/74; PULSE 81; O2SAT 91
== END 2020-09-17 08:15 | disposition short-term general hospital (02) | DRG 179 ==
LOC: ED 07:04 → MED SURG 08:46
PROVIDERS: ADMIT Family Medicine; ATTEND Family Medicine
DX: U07.1 COVID-19 (principal); J12.82 Pneumonia due to coronavirus disease 2019; R09.02 Hypoxemia; Z79.899 Other long term (current) drug therapy; F41.9 Anxiety disorder, unspecified; E66.9 Obesity, unspecified; R51.9 Headache, unspecified; R05 Cough; R53.83 Other fatigue
CPT/HCPCS: 36000; 36415; 36600; 71045; 80053; 80061; 82375; 82728; 82803; 82947; 83036; 83605; 83615; 83721; 83880; 84484; 85025; 85379; 85610; 87040; 93005; 93041; 94002; 94003; 94640; 94760; 94762; 96372; 96374; 96375; 99285; 99291; J1100; J1650; J1940; J2060; J2930; J3360; A9270-GY